=== PATIENT | male | born 1970 | race Caucasian/White ===

== ENCOUNTER 2023-08-29 01:17 | Day surgery (SDC) | payer BC, SELFPAY ==
[2023-08-15 13:46] VITALS: BMI 25.1
--- NOTE | 2023-08-27 09:43 | SUR.PREOP ---
Patient called regarding upcoming procedure. Reviewed preop instructions, appointment times, and procedure prep.
[2023-08-29 08:11] VITALS: BP 136/91; PULSE 90; RESP 18; TEMP 37.1; O2SAT 100; BMI 24.8
[2023-08-29] MEDS: LACTATED RINGERS 1,000 ML 150 ML IV CONT (08:24)
--- NOTE | 2023-08-29 08:49 | WPDANESEPPF ---
Anes - Initial Pre Proc Eval Procedure: Operation Date: 08/29/23 09:15 Proposed Procedures p Screening Colonoscopy - Jose Armando Masterson MD Date/Time: 08/29/23 08:49 Surgeon: Jose Armando Masterson MD Pre Op Diagnosis: neoplasm screening Patient Data Age: 53 Gender: M Height: 1.85 m Weight: 85.4 kg Last Vital Signs Temp 98.8 F 08/29/23 08:11 Pulse 90 08/29/23 08:11 Resp 18 08/29/23 08:11 BP 136/91 H 08/29/23 08:11 Pulse Ox 100 08/29/23 08:11 O2 Del Method Room Air 08/29/23 08:11 Allergies Allergy/AdvReac Type Severity Reaction Status Date / Time Penicillins Allergy Unknown Rash Verified 08/15/23 13:48 Home Medications Medication Instructions Recorded Confirmed Type atorvastatin 20 mg tablet 20 mg PO DAILY #90 tabs 08/09/22 08/15/23 Rx fluticasone propionate 50 2 spray intranasal DAILY #16 grams 08/09/22 08/15/23 Rx mcg/actuation nasal spray,suspension (Allergy Relief (fluticasone)) gemfibrozil 600 mg tablet 600 mg PO BID #180 tabs 08/09/22 08/15/23 Rx lisinopril 40 mg tablet 40 mg PO DAILY #90 tabs 08/09/22 08/15/23 Rx cefuroxime axetil 500 mg tablet 500 mg PO Q12H #20 tabs 08/13/23 08/15/23 Rx lisdexamfetamine 60 mg capsule 60 mg PO DAILY #60 caps 08/13/23 08/15/23 Rx (Vyvanse) esomeprazole magnesium 40 mg 40 mg PO DAILY PRN Acid Reflux 08/15/23 08/15/23 History capsule,delayed release (Nexium) Patient hx anesthesia problems: none Family hx anesthesia problems: none Results Review: All pre-operative results and documents have been reviewed as part of the pre-operative evaluation. [facility] [place] Past Medical History Medical History History of herniated intervertebral disc Surgical History Surgical History Hx of eye surgery Hx of tonsillectomy Family History Family History Father Hypertension Mother Family history of diabetes mellitus in first degree relative Diabetes mellitus Social History Social History (Updated 03/30/22 @ 15:41 by Anette Orellana MA) Smoking status: Current some day smoker Tobacco type: cigars and e-cigarettes/vaping Second hand tobacco smoke exposure: Yes Alcohol intake: current Drinks per week: 3 Substance use: never Substance use type: does not use Living arrangements: with family Occupation/Education: occupation Gender identity (if verbalized by the patient): Male Sexual Orientation (if Verbalized by the Patient): Straight or Heterosexual Spiritual care concerns: No Agree to blood products: Yes Anes - Eval Final PreProcedure Day of Procedure 08/29/23 08:49 Patient weight: normal Heart: regular rate and rhythm Lungs: clear to auscultation Airway: Mallampati scale class II Neurological: alert and oriented Last oral intake: >/= 8 hours ASA classification: II Emergent: no Anesthetic plan: proceed Anesthesia type and monitoring: general GIVS and standard monitoring Results Review: All pre-operative results and documents have been reviewed as part of the pre-operative evaluation. Informed Consent: The patient's anesthetic plan and its attendant risks and benefits were discussed with the patient/family/POA. Questions were solicited and answers provided to the satisfaction of the patient/family/POA.
--- NOTE | 2023-08-29 08:59 | PM.HPGS ---
History of Present Illness History of Present Illness Consent: Risks, benefits, and alternatives have been discussed and questions answered. Patient agrees to proceed with procedure. Chief complaint: neoplasm screening Narrative: Clark Ramirez is a 53 year old male here for first screening colonoscopy Review of Systems Constitutional: Constitutional: Denies headache(s) and Denies weakness Eyes: Eyes: Denies blurry vision ENT: Reports Normal hearing present, Denies headache(s) and Denies neck pain Cardiovascular: Cardiovascular: Denies chest pain and Denies dyspnea Respiratory: Respiratory: Denies dyspnea Gastrointestinal: Gastrointestinal: Reports no additional gastrointestinal complaints Genitourinary: Genitourinary: Denies dysuria Musculoskeletal: Musculoskeletal: Denies neck pain Integumentary/Breasts: Skin/Breast: Denies dry skin Neurologic: Reports Normal hearing present, Denies headache(s) and Denies weakness Psychiatric: Psychiatric: Denies anxiety Endocrine: Endocrine: Denies change in body appearance Hematologic/Lymphatic: Hematologic/Lymphatic: Denies easy bleeding Allergic/Immunologic: Allergic/Immunologic: Denies urticaria [facility] Past Medical History Medical History (Updated 08/29/23 @ 09:00 by Jose Armando Masterson MD) Colon cancer screening History of herniated intervertebral disc Surgical History Surgical History Hx of eye surgery Hx of tonsillectomy Family History Family History Father Hypertension Mother Family history of diabetes mellitus in first degree relative Diabetes mellitus Social History Social History (Updated 03/30/22 @ 15:41 by Anette Orellana MA) Smoking status: Current some day smoker Tobacco type: cigars and e-cigarettes/vaping Second hand tobacco smoke exposure: Yes Alcohol intake: current Drinks per week: 3 Substance use: never Substance use type: does not use Living arrangements: with family Occupation/Education: occupation Gender identity (if verbalized by the patient): Male Sexual Orientation (if Verbalized by the Patient): Straight or Heterosexual Spiritual care concerns: No Agree to blood products: Yes Meds Home Medications and Allergies Home Medications Medication Instructions Recorded Confirmed Type atorvastatin 20 mg tablet 20 mg PO DAILY #90 tabs 08/09/22 08/15/23 Rx fluticasone propionate 50 2 spray intranasal DAILY #16 grams 08/09/22 08/15/23 Rx mcg/actuation nasal spray,suspension (Allergy Relief (fluticasone)) gemfibrozil 600 mg tablet 600 mg PO BID #180 tabs 08/09/22 08/15/23 Rx lisinopril 40 mg tablet 40 mg PO DAILY #90 tabs 08/09/22 08/15/23 Rx cefuroxime axetil 500 mg tablet 500 mg PO Q12H #20 tabs 08/13/23 08/15/23 Rx lisdexamfetamine 60 mg capsule 60 mg PO DAILY #60 caps 08/13/23 08/15/23 Rx (Vyvanse) esomeprazole magnesium 40 mg 40 mg PO DAILY PRN Acid Reflux 08/15/23 08/15/23 History capsule,delayed release (Nexium) Allergies Allergy/AdvReac Type Severity Reaction Status Date / Time Penicillins Allergy Unknown Rash Verified 08/15/23 13:48 Vital Signs Vital Signs - 24 hr 08/29/23 08:11 Temperature 98.8 F Pulse Rate 90 Respiratory Rate 18 Blood Pressure 136/91 H Pulse Oximetry 100 Oxygen Delivery Room Air Exam Const: General: comfortable and no acute distress HENMT: Face/Nose/Sinus: Normal nares present Eyes: General: appearance normal, both eyes and all related structures Neck: Neck: no JVD Resp: Auscultation: clear to auscultation bilaterally Cardio: Rate: regular rate Rhythm: regular rhythm GI: Inspection: non-distended GI Palp: Yes Soft to palpation Skin: General skin exam: normal color Neuro: General: gait normal Speech: normal speech Extrem: General: normal to inspection Psych: Mental Status: mental status
[2023-08-29 09:23] VITALS: BP 134/76; PULSE 67; RESP 16; O2SAT 97
[2023-08-29 09:33] VITALS: BP 122/77; PULSE 67; RESP 13; O2SAT 99
[2023-08-29 09:43] VITALS: BP 124/75; PULSE 65; RESP 16; O2SAT 99
== END 2023-08-29 09:47 | disposition home or self-care (01) ==
PROVIDERS: PCP Family Medicine Adolescent Medicine; Visit Provider Internal Medicine Gastroenterology
PROC: 0DJD8ZZ Inspection of Lower Intestinal Tract, Via Natural or Artificial Opening Endoscopic (ICD-10-PCS; CPT 45378; principal; 2023-08-29 09:15)
DX: Z12.11 Encounter for screening for malignant neoplasm of colon (principal); K64.8 Other hemorrhoids; K63.5 Polyp of colon; D12.4 Benign neoplasm of descending colon; F17.290 Nicotine dependence, other tobacco product, uncomplicated
CPT/HCPCS: 45380; 45385; 88305; J2704; J7120